=== PATIENT | male | born 1995 | race Two or more races ===

== ENCOUNTER 2023-11-01 06:11 | Inpatient (IN) | payer OTHER ==
[~2023-11-01] VITALS: Ht 193 cm; Wt 127.3 kg
[2023-11-01] MEDS: LIDOCAINE 1% 10 ML VIAL SQ ONE (06:38)
[2023-11-01] MEDS: PERTUSS(ACELL),DIPH,TET VAC/PF 0.5 ML SYRINGE IM. ONE (06:40)
[2023-11-01 08:02] LABS: BASOPHILS % (AUTO) 0.3 % (0.0-2.0); EOSINOPHILS % (AUTO) 0.9 % (1.0-6.0); HEMATOCRIT 37.7 % (41-53); HEMOGLOBIN 12.4 g/dL (13.5-17.5); LYMPHOCYTES # (AUTO) 1.4 K/uL (1.0-4.8); LYMPHOCYTES % (AUTO) 13.3 % (22.0-44.0); MEAN CORPUSCULAR HEMOGLOBIN 28.2 pg (26.0-34.0); MEAN CORPUSCULAR HGB CONC 32.8 G/dL (31.0-37.0); MEAN CORPUSCULAR VOLUME 86 fL (80-100); MONOCYTES # (AUTO) 0.7 K/uL (0.1-1.0); MONOCYTES % (AUTO) 6.3 % (2.0-9.0); NEUTROPHILS # (AUTO) 8.2 K/uL (1.8-7.7); NEUTROPHILS % (AUTO) 79.2 % (40.0-70.0); PLATELET COUNT (AUTO) 251 K/uL (150-450); RED BLOOD CELL COUNT(AUTO) 4.38 MIL/uL (4.50-5.90); RED CELL DISTRIBUTION WIDTH 14.5 % (11.5-14.5); WHITE BLOOD COUNT (AUTO) 10.4 K/uL (4.5-11.0)
[2023-11-01] MEDS: CeFAZolin 2 GM/DEXTROSE 50 ML IV ONE (08:07)
[2023-11-01 08:11] LABS: ANION GAP 7 mmol/L (8-16); CALCIUM, TOTAL 9.2 mg/dL (8.8-10.5); CARBON DIOXIDE 30 mmol/L (22-29); CHLORIDE 101 mmol/L (98-107); CREATININE 0.71 mg/dL (0.60-1.30); GLOMERULAR FILTR. RATE CALC > 60 mL/min (>60); GLUCOSE,RANDOM 95 mg/dL (70-110); POTASSIUM 3.9 mmol/L (3.5-5.1); SODIUM SERUM 138 mmol/L (136-145); UREA NITROGEN, BLOOD 14 mg/dL (7-18)
[2023-11-01 08:12] LABS: PROTHROMBIN TIME 10.9 SEC (9.4-11.6)
[2023-11-01 08:26] LABS: ALANINE AMINOTRANSFERASE 30 U/L (12-78); ALBUMIN 3.5 g/dL (3.4-5.0); ALKALINE PHOSPHATASE 83 U/L (46-116); ASPARTATE AMINOTRANSFERASE 30 U/L (15-37); BILIRUBIN,TOTAL 0.4 mg/dL (0.1-1.0); TOTAL PROTEIN, SERUM 7.6 g/dL (6.4-8.2)
[2023-11-01] MEDS: ONDANSETRON HCL 4 MG/2 ML VIAL IVP ONE (08:39)
[2023-11-01] MEDS: MORPHINE SULFATE 2 MG/ML SYRINGE IVP ONE (08:40)
[2023-11-01] MEDS ORDERED: GADOTERATE MEGLUMINE 10 MMOL/20 ML VIAL IVP ONE (09:33)
[2023-11-01 12:40] LABS: COVID AG,FIA SOURCE NASAL SWAB
[2023-11-01 13:17] LABS: SARS-COV2 (COVID) ANTIGEN,FIA Negative (Negative)
[2023-11-01] MEDS ORDERED: MORPHINE SULFATE 2 MG/ML SYRINGE IVP PRN (17:30)
[2023-11-01] MEDS ORDERED: ONDANSETRON HCL 4 MG/2 ML VIAL IVP PRN (17:30)
[2023-11-01] MEDS ORDERED: BISACODYL 10 MG RECTAL RECTAL SUPPOSITORY PR PRN (17:30)
[2023-11-01] MEDS ORDERED: MAGNESIUM HYDROXIDE SUSPENSION 30 ML UDCUP PO PRN (17:30)
[2023-11-01] MEDS ORDERED: ACETAMINOPHEN 325 MG TABLET PO PRN (17:30)
[2023-11-01] MEDS ORDERED: IPRATROPIUM BROMIDE 0.5 MG/2.5 ML NEB SOLUTION NEB PRN (17:30)
[2023-11-01] MEDS ORDERED: ALBUTEROL SULFATE 2.5 MG/0.5 ML NEB SOLUTION NEB PRN (17:30)
[2023-11-01 18:31] VITALS: BP 108/56; PULSE 83; RESP 18; TEMP 98.5
[2023-11-01] MEDS ORDERED: SODIUM CHLORIDE 0.9% 500 ML IV ONE (18:44)
[2023-11-01] MEDS: VANCOMYCIN HCL 1.25 GM in DEXTROSE 5%-WATER 250 ML IV ONE (18:47)
[2023-11-01 20:37] VITALS: BP 99/48; PULSE 90; RESP 20; TEMP 98.5
[2023-11-01] MEDS: HEPARIN SODIUM,PORCINE 5,000 UNITS/ML VIAL SQ SCH (23:36)
[2023-11-01] MEDS: VANCOMYCIN HCL 1.5 GM in DEXTROSE 5%-WATER 250 ML IV SCH (23:36)
[2023-11-01] MEDS: HYDROCODONE/ACETAMINOPHEN 5-325 MG TABLET PO PRN (23:38)
[2023-11-02 03:16] VITALS: BP 121/70; PULSE 86; RESP 20; TEMP 98.4
[2023-11-02 07:45] LABS: ANION GAP 7 mmol/L (8-16); CALCIUM, TOTAL 9.4 mg/dL (8.8-10.5); CARBON DIOXIDE 29 mmol/L (22-29); CHLORIDE 100 mmol/L (98-107); CREATININE 0.78 mg/dL (0.60-1.30); GLOMERULAR FILTR. RATE CALC > 60 mL/min (>60); GLUCOSE,RANDOM 111 mg/dL (70-110); SODIUM SERUM 136 mmol/L (136-145); UREA NITROGEN, BLOOD 11 mg/dL (7-18)
[2023-11-02] MEDS: PANTOPRAZOLE SODIUM 40 MG DR TABLET PO SCH (08:06)
[2023-11-02 09:11] VITALS: BP 121/79; PULSE 82; RESP 20; TEMP 98.8
[2023-11-02] MEDS ORDERED: SODIUM CL IRRIG SOLN BAG 3,000 ML IRRIG ONE (11:54)
[2023-11-02] MEDS ORDERED: BUPIVACAINE LIPOSOME/PF 1.3%-13.3MG/ML SUSPENSION 20 ML VIAL INJ ONE (12:00)
[2023-11-02] MEDS ORDERED: RINGERS SOLUTION,LACTATED 1,000 ML IV ONE (12:01)
[2023-11-02] MEDS: RINGERS SOLUTION,LACTATED 1,000 ML IV ONE (14:51)
[2023-11-02] MEDS ORDERED: CeFAZolin 2 GM/DEXTROSE 50 ML IV ONE (14:52)
[2023-11-02] MEDS: CeFAZolin 2 GM/DEXTROSE 50 ML IV ONE (14:52)
[2023-11-02] MEDS ORDERED: CeFAZolin SODIUM 1 GM VIAL IM ONE (15:00)
[2023-11-02] MEDS: BUPIVACAINE HCL/PF 0.25% 30 ML VIAL ONE (16:23)
[2023-11-02] MEDS: VANCOMYCIN HCL 1 GM/VIAL ONE (16:24)
[2023-11-02] MEDS ORDERED: FentaNYL CITRATE PF 100 MCG/2 ML VIAL IVP PRN (16:30)
[2023-11-02] MEDS ORDERED: MEPERIDINE-PF 25 MG/ML VIAL IVP PRN (16:30)
[2023-11-02] MEDS ORDERED: HYDROmorphone HCL 2 MG/ML SYRINGE IVP PRN (16:30)
[2023-11-02 18:03] VITALS: BP 122/69; PULSE 80; RESP 20; TEMP 98.2
[2023-11-02] MEDS: ZOLPIDEM TARTRATE 5 MG TABLET PO PRN (23:20)
[2023-11-03 04:17] VITALS: BP 126/57; PULSE 63; RESP 20; TEMP 98.3
[2023-11-03] MEDS ORDERED: HYDROmorphone HCL 2 MG/ML SYRINGE IVP ONE (06:55)
[2023-11-03] MEDS ORDERED: SUGAMMADEX SODIUM 200 MG/2 ML VIAL IVP ONE (06:55)
[2023-11-03] MEDS ORDERED: DEXAMETHASONE SOD PHOS 4 MG/ML VIAL IVP ONE (06:55)
[2023-11-03] MEDS ORDERED: 0.9% SODIUM CHLORIDE 10 ML VIAL IVP ONE (06:55)
[2023-11-03] MEDS ORDERED: MIDAZOLAM HCL 2 MG/2 ML VIAL IVP ONE (06:55)
[2023-11-03] MEDS ORDERED: ROCURONIUM BROMIDE 10 MG/ML 5 ML VIAL IVP ONE (06:55)
[2023-11-03] MEDS ORDERED: PROPOFOL 1% 20 ML VIAL IVP ONE (06:55)
[2023-11-03] MEDS ORDERED: LIDOCAINE/PF 2% 5 ML VIAL IM ONE (06:55)
[2023-11-03] MEDS ORDERED: ONDANSETRON HCL 4 MG/2 ML VIAL IVP ONE (06:55)
[2023-11-03] MEDS: OXYGEN THERAPY IH SCH (08:00)
[2023-11-03 08:41] VITALS: BP 123/65; PULSE 72; RESP 19; TEMP 98
== END 2023-11-03 11:00 | disposition left against medical advice (07) | DRG 364 ==
LOC: EMS 06:11 → AHU 08:04 → 6S 15:54
PROVIDERS: ADMIT Hospitalist; ATTEND Hospitalist
PROC: 0JBK0ZZ Excision of Left Hand Subcutaneous Tissue and Fascia, Open Approach (ICD-10-PCS; principal; 2023-11-02 16:00)
DX: L02.512 Cutaneous abscess of left hand (principal); F11.10 Opioid abuse, uncomplicated; S61.211A Laceration without foreign body of left index finger without damage to nail, initial encounter; Z20.822 Contact with and (suspected) exposure to COVID-19; M65.9 Synovitis and tenosynovitis, unspecified; X58.XXXA Exposure to other specified factors, initial encounter; F12.10 Cannabis abuse, uncomplicated; F17.200 Nicotine dependence, unspecified, uncomplicated; F15.10 Other stimulant abuse, uncomplicated; Z59.00 Homelessness unspecified; Z91.199 Patient's noncompliance with other medical treatment and regimen due to unspecified reason; Y93.89 Activity, other specified; Y92.89 Other specified places as the place of occurrence of the external cause; Y99.8 Other external cause status
CPT/HCPCS: 73220; 80048; 80053; 85025; 85610; 87070; 87081; 87101; 87186; 87205; 90715; 99285; C9290; J0690; J1100; J1170; J1644; J2250; J2270; J2405; J2704; J3370; J3490; J7040; J7060; J7120; Q9967; 36415-L1; 36415-TC